=== PATIENT | female | born 1990 | race African-American/Black ===

== ENCOUNTER 2018-12-04 21:28 | Emergency (ER) | payer SELFPAY ==
[~2018-12-04] VITALS: Ht 167.6 cm; Wt 57.2 kg
[2018-12-04 21:39] VITALS: BP 114/58; Ht 167.6 cm; Wt 57.2 kg
== END 2018-12-04 22:21 | disposition home or self-care (01) ==
LOC: ED 21:28
DX: S02.5XXA Fracture of tooth (traumatic), initial encounter for closed fracture (principal); K05.10 Chronic gingivitis, plaque induced; X58.XXXA Exposure to other specified factors, initial encounter; Y93.89 Activity, other specified; Y92.89 Other specified places as the place of occurrence of the external cause; Y99.8 Other external cause status